=== PATIENT | male | born 1995 | race Caucasian/White ===

== ENCOUNTER 2020-05-04 03:33 | Day surgery (SDC) | payer OTHER ==
--- NOTE | 2020-05-04 03:43 | ED Physician Documentation ---
PD HPI ABD PAIN - Stated complaint Stated Complaint: ABD PX - Chief complaint Chief Complaint: Abd Pain - History obtained from History obtained from: Patient - History of Present Illness Timing - onset: Enter time (18:30), Yesterday Timing - details: Gradual onset, Constant Pain level now: 8 Quality: Pain Location: RLQ, Suprapubic Radiation: Lower back Improved by: Laying still Worsened by: Moving, Position, Palpation Associated symptoms: Nausea, Vomiting. No: Fever, Diarrhea, Constipation, Hematuria Similar symptoms before: Has not had sx before Recently seen: Not recently seen Review of Systems Constitutional: denies: Fever, Chills, Sweats Cardiac: reports: Reviewed and negative Respiratory: reports: Reviewed and negative GI: reports: Abdominal Pain, Nausea. denies: Abdominal Swelling, Vomiting, Constipation, Diarrhea : denies: Dysuria, Frequency, Hematuria Skin: denies: Rash Musculoskeletal: reports: Back pain PD PAST MEDICAL HISTORY - Past Medical History Past Medical History: No - Past Surgical History Past Surgical History: No - Present Medications Home Medications: Ambulatory Orders Medication Instructions Recorded Confirmed No Known Home Medications 05/04/20 05/04/20 - Allergies Allergies/Adverse Reactions: Allergies Allergy/AdvReac Type Severity Reaction Status Date / Time No Known Drug Allergies Allergy Verified 05/04/20 03:39 - Social History Does the pt smoke?: Yes Smoking Status: Current every day smoker Does the pt drink ETOH?: Yes ETOH Use: Beer Does the pt have substance abuse?: No - Immunizations Immunizations are current?: Yes - POLST Patient has POLST: No PD ED PE NORMAL - Vitals Vital signs reviewed: Yes - General General: Alert and oriented X 3, Well developed/nourished, Other (appears to be in moderate painful distress) - HEENT HEENT: Moist mucous membranes - Neck Neck: Supple, no meningeal sign - Cardiac Cardiac: RRR, No murmur, No gallop, No rub - Respiratory Respiratory: No respiratory distress, Clear bilaterally - Abdomen Abdomen: Soft, Non distended - Back Back: No CVA TTP - Derm Derm: Normal color, Warm and dry PD ED PE EXPANDED - Abdomen Abdomen: Tender to palpation, Rebound, RLQ. No: Guarding Results - Vitals Vitals: Vital Signs - 24 hr 05/04/20 05/04/20 05/04/20 03:35 04:24 04:52 Temperature 36.6 C 37.0 C Heart Rate 56 L 59 L 56 L Respiratory 18 18 16 Rate Blood Pressure 123/71 127/74 147/52 H O2 Saturation 100 100 100 05/04/20 05/04/20 05/04/20 05:32 06:00 06:44 Temperature 37.3 C 37.5 C 37.2 C Heart Rate 104 H 71 64 Respiratory 18 15 16 Rate Blood Pressure 143/74 H 140/59 H 140/59 H O2 Saturation 100 100 95 05/04/20 05/04/20 08:12 08:20 Temperature 36.3 C L 37.2 C Heart Rate 105 H 64 Respiratory 16 16 Rate Blood Pressure 119/56 L 140/59 H O2 Saturation 100 95 Oxygen O2 Source Room air - Labs Labs: Laboratory Tests 05/04/20 05/04/20 05/04/20 03:40 03:40 03:50 WBC 19.9 H RBC 4.78 Hgb 14.1 Hct 42.4 MCV 88.7 MCH 29.5 MCHC 33.3 RDW 12.2 Plt Count 260 MPV 11.9 H Neut # (Auto) 17.8 H Lymph # (Auto) 0.7 L Luce # (Auto) 1.1 H Eos # (Auto) 0.1 Baso # (Auto) 0.1 Absolute Nucleated RBC 0.00 Nucleated RBC % 0.0 Sodium 138 Potassium 3.7 Chloride 100 L Carbon Dioxide 26 Anion Gap 12.0 BUN 15 Creatinine 0.9 Estimated GFR (MDRD) 105 Glucose 152 H Calcium 9.7 Total Bilirubin 1.4 H AST 27 ALT 30 Alkaline Phosphatase 47 Total Protein 7.9 Albumin 5.3 Globulin 2.6 Albumin/Globulin Ratio 2.0 Lipase 20 L Urine Color YELLOW Urine Clarity CLEAR Urine pH 7.0 Ur Specific [place] >=1.030 H Urine Protein NEGATIVE Urine Glucose (UA) NEGATIVE Urine Ketones >=80 H Urine Occult Blood MODERATE H Urine Nitrite NEGATIVE Urine Bilirubin NEGATIVE Urine Urobilinogen 0.2 (NORMAL) Ur Leukocyte Esterase NEGATIVE Urine RBC 11-25 H Urine WBC 0-3 Ur Squamous Epith Cells NONE SEEN Urine Bacteria Rare Urine Mucus Moderate Strands Ur Microscopic Review INDICATED Urine Culture Comments NOT INDICATED - Rads (name of study) CT A/P with IV contrast Radiology: Prelim report reviewed, See rad report PD MEDICAL DECISION MAKING - ED course Complexity details: reviewed results, re-evaluated patient, considered differential, d/w patient ED course: H+P, CT c/w acute appendicits. D/W Dr. Ch, recommends Zosyn IV and he will admit patient to [facility] for appendectomy Departure - Departure Disposition: ED Transfer to [facility] Clinical Impression: Appendicitis Condition: Good Discharge Date/Time: 05/04/20 08:17
[2020-05-04] MEDS ORDERED: KETOROLAC 30 MG/ML VIAL IVP STA (03:54)
[2020-05-04 03:59] LABS: GLUCOSE, URINE (UA) NEGATIVE (NEGATIVE); KETONES,URINE (UA) >=80 mg/dL (NEGATIVE); LEUKOCYTE ESTERASE, URINE NEGATIVE (NEGATIVE); NITRITE,URINE NEGATIVE (NEGATIVE); OCCULT BLOOD,URINE MODERATE (NEGATIVE); PROTEIN,URINE NEGATIVE (NEGATIVE); UROBILINOGEN,URINE 0.2 (NORMAL) E.U./dL (NORMAL)
[2020-05-04 03:59] LABS: BASOPHILS # (AUTO) 0.1 10^3/uL (0.0-0.1); BASOPHILS % (AUTO) 0.4 %; EOSINOPHILS # (AUTO) 0.1 10^3/uL (0.0-0.7); EOSINOPHILS % (AUTO) 0.3 %; HGB - HEMOGLOBIN 14.1 g/dL (14.0-18.0); LYMPHOCYTES # (AUTO) 0.7 10^3/uL (1.5-3.5); LYMPHOCYTES % (AUTO) 3.7 %; MEAN CORPUSCULAR HEMOGLOBIN 29.5 pg (27.0-31.0); MEAN CORPUSCULAR HGB CONC 33.3 g/dL (32.0-36.0); MEAN CORPUSCULAR VOLUME 88.7 fL (80.0-94.0); MEAN PLATELET VOLUME 11.9 fL (7.4-11.4); MONOCYTES # (AUTO) 1.1 10^3/uL (0.0-1.0); MONOCYTES % (AUTO) 5.5 %; NEUTROPHILS # (AUTO) 17.8 10^3/uL (1.5-6.6); NEUTROPHILS % (AUTO) 89.4 %; PLT - PLATELET COUNT 260 10^3/uL (130-450); RED BLOOD COUNT 4.78 10^6/uL (4.70-6.10); RED CELL DISTRIBUTION WIDTH 12.2 % (12.0-15.0); WHITE BLOOD COUNT 19.9 x10^3/uL (4.8-10.8)
[2020-05-04 04:05] LABS: ALBUMIN 5.3 g/dL (3.2-5.5); BILIRUBIN,TOTAL 1.4 mg/dL (0.2-1.0); CALCIUM 9.7 mg/dL (8.5-10.3); CREATININE 0.9 mg/dL (0.6-1.2); TOTAL PROTEIN 7.9 g/dL (6.7-8.2)
[2020-05-04 04:06] LABS: BILIRUBIN,URINE NEGATIVE (NEGATIVE); CLARITY,URINE CLEAR (CLEAR); ICTOTEST,URINE NEGATIVE
[2020-05-04 04:07] LABS: BACTERIA,URINE Rare /HPF (None Seen); MUCUS,URINE Moderate Strands; SQUAMOUS EPITHELIAL CELL,UR NONE SEEN (<= Few)
[2020-05-04] MEDS ORDERED: IOVERSOL 320 100 ML VIAL IVP ONE ×2 (04:14→04:54)
[2020-05-04] MEDS ORDERED: SODIUM CHLORIDE 0.9% 1,000 ML IV STA (04:28)
[2020-05-04] MEDS ORDERED: ONDANSETRON 4 MG/2 ML VIAL IVP STA (04:28)
[2020-05-04] MEDS ORDERED: MORPHINE 2 MG/ML CARPUJECT IVP STA (04:28)
[2020-05-04] MEDS ORDERED: PIPERACILLIN/TAZOBACTAM 3.375 GM in SODIUM CHLORIDE 0.9% MINIBAG 100 ML IV STA (05:31)
--- NOTE | 2020-05-04 07:29 | ANESTHESIA ---
Pre-Anesthesia VS, & Labs - Diagnosis Acute Appendicitis - Procedure Lap Robert Vital Signs: Temp Pulse Resp BP Pulse Ox 37.2 C 64 16 140/59 H 95 05/04/20 06:44 05/04/20 06:44 05/04/20 06:44 05/04/20 06:44 05/04/20 06:44 Height: 5 ft 11 in Weight (kg): 95.254 kg Body Mass Index: 29.2 BMI Classification: Overweight - NPO >8 hours - Lab Results Current Lab Results: Laboratory Tests 05/04/20 03:40: Sodium 138, Potassium 3.7, Chloride 100 L, Carbon Dioxide 26, Anion Gap 12.0, BUN 15, Creatinine 0.9, Estimated GFR (MDRD) 105, Glucose 152 H, Calcium 9.7, Total Bilirubin 1.4 H, AST 27, ALT 30, Alkaline Phosphatase 47, Total Protein 7.9, Albumin 5.3, Globulin 2.6, Albumin/Globulin Ratio 2.0, Lipase 20 L 05/04/20 03:40: WBC 19.9 H, RBC 4.78, Hgb 14.1, Hct 42.4, MCV 88.7, MCH 29.5, MCHC 33.3, RDW 12.2, Plt Count 260, MPV 11.9 H, Neut # (Auto) 17.8 H, Lymph # (Auto) 0.7 L, [place] # (Auto) 1.1 H, Eos # (Auto) 0.1, Baso # (Auto) 0.1, Absolute Nucleated RBC 0.00, Nucleated RBC % 0.0 Fish Bones: 05/04/20 03:40 05/04/20 03:40 Home Medications and Allergies Home Medications: Ambulatory Orders No Known Home Medications 05/04/20 No Known Home Medications 05/04/20 Allergies/Adverse Reactions: Allergies Allergy/AdvReac Type Severity Reaction Status Date / Time No Known Drug Allergies Allergy Verified 05/04/20 03:39 Anes History & Medical History - Anesthetic History Family history of Anesthesia Complications: Denies Family history of Malignant Hyperthermia: Denies - Medical History Cardiovascular: reports: None Pulmonary: reports: None Gastrointestinal: reports: None Urinary: reports: None Neuro: reports: None Musculoskeletal: reports: None Endocrine/Autoimmune: reports: None Blood Disorders: reports: None Skin: reports: None Smoking Status: Current every day smoker Psychosocial: reports: No issues indicated History of Cancer?: No Exam General: Alert, Oriented x3, Cooperative, No acute distress Dental: WNL Mouth Openin Fingerbreadth Neck Mobility: Normal Mallampati classification: II Thyromental Distance: 4-6 cm Respiratory: Lungs clear, Normal breath sounds, No respiratory distress, No accessory muscle use Cardiovascular: Regular rate, Normal S1, Normal S2, No murmurs Mental/Cognitive Status: Alert/Oriented X3, Normal for patient Plan Anesthesia Type: General Consent for Procedure(s) Verified and Reviewed: Yes Code Status: Attempt Resuscitation ASA classification: 1-Healthy patient Is this case an emergency?: Yes
--- NOTE | 2020-05-04 08:14 | SURGERY HX AND PHYSICAL(T) ---
Surgical History & Physical - Chief Complaint/HPI Chief Complaint: Abdominal pain consistent with acute appendicitis History of Present Illness: 24-year-old male with 24-hour history of periumbilical abdominal pain that migrated to the right lower quadrant. No similar prior episodes. No personal family history of Crohn's disease or ulcerative colitis. No recent diarrheal illness. Associated nausea and multiple episodes of emesis. No significant past medical or surgical history. No significant allergies to antibiotics or medications. Patient is with no recent travel or concerning contacts. He is accompanied by his . He was seen through the ER with CT imaging consistent with retrocecal appendix, antibiotics dosed after discussion with Dr. Caceres. - PMH/PSH/Social Hx Does the pt have a hx of MRSA?: No Neurological History: None Cardiovascular: None Respiratory: None Skin: None Endocrine/Autoimmune: None Gastrointestinal: None Urinary: None Musculoskeletal: None Blood Disorders: None Smoking Status: Current every day smoker Does the pt drink ETOH?: Yes Frequency: Occasional Does the pt have substance abuse?: No - Family Hx Family Hx: Other (No significant family history of colorectal cancer, inflammatory bowel disease, Crohn's disease, ulcerative colitis) - Home Meds and Allergies Home Medications: No Known Home Medications 05/04/20 Allergies/Adverse Reactions: Allergies Allergy/AdvReac Type Severity Reaction Status Date / Time No Known Drug Allergies Allergy Verified 05/04/20 03:39 - Review of Systems Constitutional: Fatigue, Fever, Chills, Malaise Gastrointestinal: Nausea, Vomiting, Abdominal pain - Vital Signs Heart Rate: 64 Blood Pressure: 140/59 Temperature: 37.2 C Respiratory Rate: 16 O2 Saturation: 95 Weight (kg): 95.254 kg Height: 1.8 m - Physical Exam General Appearance: positive: Alert, Mild distress Eyes Bilatera: positive: Normal inspection, PERRL, EOMI ENT: positive: ENT inspection nml Neck: positive: Nml inspection Respiratory: positive: Chest non-tender, No respiratory distress, Breath sounds nml. negative: Wheezes, Rales, Rhonchi Cardiovascular: positive: Regular rate & rhythm. negative: No murmur Abdomen: positive: No distention, Tenderness, Guarding, Rebound (Abdomen softly distended, positive tenderness to palpation in the right lower quadrant with localized rebound and localized guarding. No generalized peritoneal signs. No palpable hernias or other concerning features.) Skin: positive: Color nml Extremities: positive: Non-tender, Full ROM, Nml appearance Neurologic/Psychiatric: positive: Oriented x3, CN's nml (2-12), Motor nml, Sensation nml, Mood/affect nml - Patient Review Patient Review: Problems were reviewed with the patient during this visit. Medications were reviewed with the patient during this visit. Allergies were reviewed this patient during this visit. Pertinent Tests Reviewed: All pertitent test for this patient were reviewed. - Assessment & Plan Assessment and Plan: 24-year-old male, Active , presenting with 1 day of abdominal pain. Work-up included computed tomography as well as lab evaluation. Patient notable for a leukocytosis, 19, as well as appendicitis, retrocecal, with inflammatory changes. Patient with periumbilical pain that migrated to the right lower quadrant. Discussed patient options and after informed consent was obtained agreed to proceed to the operating room urgently for laparoscopic intervention. Plan going forward is as follows: 1. Bowel rest, IV fluid resuscitation, IV antibiotics. 2. Preoperative chest x-ray, preoperative EKG, labs evaluated. 3. Planned diagnostic laparoscopy, laparoscopic appendectomy, other indicated procedures. Patient counseled of the risk associated with operative intervention including but not limited to conversion to open procedure, injury to local structures, and anesthesia risks of heart attack, stroke, . 4. Postoperative care under observation status with continued IV antibiotics.
[2020-05-04] MEDS ORDERED: ONDANSETRON 4 MG/2 ML VIAL IVP ONE (08:19)
[2020-05-04] MEDS ORDERED: PROPOFOL 200 MG/20 ML VIAL IVP ONE (08:19)
[2020-05-04] MEDS ORDERED: fentaNYL 100 MCG/2 ML VIAL IVP ONE (08:19)
[2020-05-04] MEDS ORDERED: GLYCOPYRROLATE 1 MG/5 ML VIAL IVP ONE (08:19)
[2020-05-04] MEDS ORDERED: ACETAMINOPHEN 1,000 MG/100 ML 100 ML IV ONE (08:19)
[2020-05-04] MEDS ORDERED: MIDAZOLAM 2 MG/2 ML VIAL IVP ONE (08:19)
[2020-05-04] MEDS ORDERED: NEOSTIGMINE 1 MG/1 ML 10 ML MDV IVP ONE (08:19)
[2020-05-04] MEDS ORDERED: DEXAMETHASONE 4 MG/ML VIAL IVP ONE (08:19)
[2020-05-04] MEDS ORDERED: HYDROmorphone 1 MG/ML CARPUJECT IVP ONE (08:19)
[2020-05-04] MEDS ORDERED: ROCURONIUM 50 MG/5 ML VIAL IVP ONE (08:19)
[2020-05-04] MEDS ORDERED: BUPIVACAINE 0.5% PF 30 ML VIAL ONE (08:31)
[2020-05-04] MEDS ORDERED: LIDOCAINE 1%-EPI 1:100000 20 ML MDV ONE (08:31)
--- NOTE | 2020-05-04 08:50 | CT Report ---
PROCEDURE: Abdomen/Pelvis W INDICATIONS: RLQ pain CONTRAST: IV CONTRAST: Optiray 320 ml: 100 PO CONTRAST: *NO PO CONTRAST TECHNIQUE: After the administration of weight appropriate dose of intravenous contrast, 5 mm thick sections acqu ired from the diaphragms to the symphysis. 5 mm thick coronal and sagittal reformats were acquired. For radiation dose reduction, the following was used: automated exposure control, adjustment of mA and/or kV according to patient size. COMPARISON: None. FINDINGS: Image quality: Excellent. ABDOMEN: Lung bases: Lung bases are clear. Heart size is normal. Solid organs: Liver is slightly enlarged. The spleen are normal in size and enhancement. Gallbladder is unremarkable. Biliary system is non dilated. Pancreas enhances normally. No adrenal nodules. Kidneys demonstrate normal size and enhancement, without hydronephrosis. Peritoneum and bowel: The retrocecal appendix is dilated with wall thickening and periappendiceal st randing. There are also appendicoliths. No evidence for perforation or abscess formation. Appendix me asures approximately 14 mm in diameter. Remainder of the visualized bowel loops demonstrate normal wa ll thickness and caliber. No free fluid or air. Nodes and vessels: No retroperitoneal or mesenteric adenopathy by size criteria. Aorta and inferior vena cava are normal in size. Miscellaneous: No ventral hernias. PELVIS: Genitourinary: Bladder wall thickness is normal. Miscellaneous: No inguinal hernias or adenopathy. Bones: No suspicious bony lesions. No vertebral body compression fractures. IMPRESSION: Uncomplicated acute retrocecal appendicitis with associated appendicoliths. No significant discrepancy with initial interpretation by overnight radiologist. Reviewed by: Mohan Orta MD on 05/04/2020 8:49 AM PDT Approved by: Mohan Orta MD on 05/04/2020 8:49 AM PDT Station ID: [id number]
[2020-05-04] MEDS ORDERED: LIDOCAINE 1%-EPI 1:100000 20 ML MDV SUBQ ONE ×2 (08:51)
[2020-05-04] MEDS ORDERED: BUPIVACAINE 0.5% PF 30 ML VIAL SUBQ ONE ×2 (08:52)
[2020-05-04] MEDS ORDERED: ATROPINE ABBOJECT 1 MG/10 ML SYRINGE IVP PRN (09:05)
[2020-05-04] MEDS ORDERED: NALOXONE 0.4 MG/ML VIAL IVP PRN (09:05)
[2020-05-04] MEDS ORDERED: HYDROmorphone 0.5 MG/0.5 ML SYRINGE IVP PRN (09:05)
[2020-05-04] MEDS ORDERED: MORPHINE 2 MG/ML CARPUJECT IVP PRN (09:05)
[2020-05-04] MEDS ORDERED: fentaNYL 100 MCG/2 ML VIAL IVP PRN (09:05)
[2020-05-04] MEDS ORDERED: ONDANSETRON 4 MG/2 ML VIAL IVP PRN ×2 (09:05→09:44)
[2020-05-04] MEDS ORDERED: METOCLOPRAMIDE 10 MG/2 ML VIAL IVP PRN (09:44)
[2020-05-04] MEDS ORDERED: KETOROLAC 15 MG/ML VIAL IVP PRN (09:44)
[2020-05-04] MEDS ORDERED: ACETAMINOPHEN 325 MG TABLET PO PRN (09:44)
--- NOTE | 2020-05-04 09:48 | OPERATIVE REPORT ---
Operative Report - General Procedure Date: 05/04/20 Planned Procedure: 1. Diagnostic laparoscopy 2. Laparoscopic appendectomy Pre-Op Diagnosis: SIRS, abdominal pain, acute appendicitis Procedure Performed: 1. Diagnostic laparoscopy 2. Laparoscopic appendectomy 3. Extensive lysis of adhesions 4. Drainage of abscess 5. Abdominal washout 6. Open umbilical hernia repair 7. Tap block per anesthesia Post Op Diagnosis: Same, sepsis secondary to appe, suppurative/necrotic/nonperforated appe - Procedure Note Primary Surgeon: Jing Anesthesia Provider: AURELIA Anesthesia Technique: General ET tube, Local Pathology: Appendix Estimated Blood Loss (mL): 5 Indications: See electronic medical record. Findings: 1. Dense right lower quadrant adhesions 2. Necrotic appearing suppurative nonperforated appendicitis with local purulent peritonitis 3. Intact ileocecal valve, freely mobilized after adhesiolysis 4. Right ureter identified and intact Complications: None - Other Other Information/Narrative: OPERATIVE PROCEDURE: The patient was taken to the operating room, placed supine on the operating table. The patent was already obtained tor informed consent which was documented in the patients permanent medical record The patient was induced for general endotracheal anesthesia. The patient was positioned, off loaded and padded at all pressure points. The patient was placed for a Patel catheter and tucked for the left arm. The patient was prepped and draped in the usual sterile fashion. The patient was called for a time out which was agreed to all in the room. Open Suggs technique was performed through umbilicus and umbilical trocar was placed. This was achieved with a circumlinear maria alejandra-umbilical incision. This is taken through the subcutaneous fat, the umbilical stalk was dissected off and obvious hernia defect was appreciated. This was done without any injury to the umbilical skin. That robinson defect was enlarged and accommodated Suggs trocar without any complication. Insufflation was commenced which the patient tolerated to 15 mmHg well with no complication. Additional trocars were placed suprapubic and left lower quadrant under direct laparoscopic vision. At this time the patient was placed in Trendelenburg position with right side up and we proceeded to isolate the cecum which was densely adhered to the sidewall. There were also dense adhesions of the terminal ileum to the sidewall extending to the pelvic inlet on the right. These were divided using cautery with countertraction without any complication. The appendix was noted to be significantly dilated with associated features of early necrosis, early suppuration, no kenny perforation, and localized purulent peritonitis. There is no notable abscess. We extensively aspirated this area and very carefully mobilized the appendix without any inadvertent perforation during this operative intervention. The appendix was continued to be mobilized and thereafter we achieved mobilization medially taking care to note the location of the ureter which was protected and identified throughout the entirety at this case especially given the extent of the patients inflammatory changes. Ultimately the cecum was isolated free, and the appendix was thereafter completely mobilized off the abdominal and pelvic sidewall. At this time there were dense adhesions noted of the appendix to the ascending colon and cecum and this required careful dissection as well, both blunt and also using the suction precision lathe operator and diligent electrocautery. At this time a [place] was used to dissect the cecal-appendiceal junction and thereafter using a ENDOGIA linear cutting stapler, the appendix was divided at the base to include portion at the cecum. Partial cecectomy was performed to assure complete resection of the appendix with associated necrotic tissue. The ileocecal valve was identified and protected throughout with no involvement. Please note that the terminal ileum was dissected free from its dense adhesions to the right lower quadrant and the right pelvic inlet At this time, we continued to mobilize the appendix off the ascending colon and caecum making sure there was no inadvertent injury to the ascending colon and the cecum which was again densely adhered to the appendix. The mesoappendix was divided with a additional load of the Endo TOSHIA vascular. This was hemostatic after completion with no evidence of any bleeding or extravasation at either of the staple lines at the level of the cecum or the mesentery. Prior to this complete mobilization was performed with great care using blunt as well as diligent electrocautery dissection and ultimately isolated and dissected free the appendix which was placed into an Endo Catch bag for control of any further spillage. The appendiceal staple line and mesoappendix staple line and ligature were evaluated and hemostatic. At this time, we extensively irrigated the abdomen with greater than 2 liters of sterile saline and aspirated clear. At this time all trochars, secondary, were removed under direct laparoscopic visualization with no consequent bleeding. We removed the Suggs trocar, passed the specimen off for permanent pathology. We closed the umbilical defect with several [id number]'s of 0 Vicryl, and performed umbilicoplasty simultaneous. A mixture of quarter percent Marcaine and 1% lidocaine were instilled within the wounds for a total of 10 cc. All skin and subcutaneous tissue was reapproximated with skin emiliano. Wounds were dressed with Telfa and Tegaderm. I was present for the entirety of this operative intervention patient tolerated procedure well which is no complication. All counts were sponges needles and instruments were correct at the conclusion of this operative case.
[2020-05-04] MEDS ORDERED: LACTATED RINGERS 1,000 ML IV ONE (10:00)
[2020-05-04] MEDS ORDERED: LACTATED RINGERS 1,000 ML IV SCH (10:00)
[2020-05-04] MEDS: LACTATED RINGERS 1,000 ML IV SCH ×2 (10:00→20:57)
--- NOTE | 2020-05-04 10:42 | ANESTHESIA POST OP EVALUATION ---
Anesthesia Post Eval - Post Anesthesia Eval Vitals: Last Vital Signs Temp 38.4 C H 05/04/20 10:35 Pulse 85 05/04/20 10:35 Resp 16 05/04/20 10:35 BP 91/41 L 05/04/20 10:35 Pulse Ox 96 05/04/20 10:35 CV Function Including HR & BP: positive: Stable Pain Control: positive: Satisfactory Nausea & Vomiting: positive: Negative Mental Status: positive: Baseline Respiratory Status: Airway Patent Hydration Status: Satisfactory Anesthesia Complications: positive: None
[2020-05-04] MEDS: FAMOTIDINE 20 MG/2 ML SYRINGE IVP SCH ×2 (12:05→20:02)
[2020-05-04] MEDS: PIPERACILLIN/TAZOBACTAM 3.375 GM in SODIUM CHLORIDE 0.9% MINIBAG 100 ML IV SCH ×2 (12:20→20:02)
[2020-05-05] MEDS: HYDROmorphone 0.5 MG/0.5 ML SYRINGE IVP PRN ×2 (02:35→08:23)
[2020-05-05] MEDS: PIPERACILLIN/TAZOBACTAM 3.375 GM in SODIUM CHLORIDE 0.9% MINIBAG 100 ML IV SCH (04:13)
[2020-05-05] MEDS: LACTATED RINGERS 1,000 ML IV SCH (05:17)
[2020-05-05 05:22] LABS: BASOPHILS # (AUTO) 0.1 10^3/uL (0.0-0.1); BASOPHILS % (AUTO) 0.3 %; EOSINOPHILS # (AUTO) 0.1 10^3/uL (0.0-0.7); EOSINOPHILS % (AUTO) 0.3 %; HGB - HEMOGLOBIN 11.5 g/dL (14.0-18.0); LYMPHOCYTES # (AUTO) 1.5 10^3/uL (1.5-3.5); LYMPHOCYTES % (AUTO) 9.6 %; MEAN CORPUSCULAR HEMOGLOBIN 29.5 pg (27.0-31.0); MEAN CORPUSCULAR HGB CONC 32.1 g/dL (32.0-36.0); MEAN CORPUSCULAR VOLUME 91.8 fL (80.0-94.0); MEAN PLATELET VOLUME 12.9 fL (7.4-11.4); MONOCYTES # (AUTO) 0.9 10^3/uL (0.0-1.0); MONOCYTES % (AUTO) 5.4 %; NEUTROPHILS # (AUTO) 13.5 10^3/uL (1.5-6.6); NEUTROPHILS % (AUTO) 83.7 %; PLT - PLATELET COUNT 174 10^3/uL (130-450); RED CELL DISTRIBUTION WIDTH 12.7 % (12.0-15.0); WHITE BLOOD COUNT 16.1 x10^3/uL (4.8-10.8)
[2020-05-05 05:36] LABS: ALBUMIN 3.6 g/dL (3.2-5.5); ALBUMIN/GLOBULIN RATIO 1.5 (1.0-2.2); BILIRUBIN,TOTAL 0.9 mg/dL (0.2-1.0); CALCIUM 8.3 mg/dL (8.5-10.3); CREATININE 0.9 mg/dL (0.6-1.2)
--- NOTE | 2020-05-05 08:08 | Discharge Plan ---
Discharge Plan Problem Reviewed?: Yes Disposition: Home, Self Care Condition: Good Prescriptions: Amox/Clav 875/125 [Augmentin] 1 each PO Q12H #20 tablet Docusate Sodium 100 mg PO BID #60 capsule methocarbamoL [Robaxin] 500 mg PO Q6H PRN #50 tablet PRN Reason: Spasms traMADol [Ultram] 50 mg PO Q4-6H PRN #30 tablet PRN Reason: Pain Diet: Regular (Low residue) Activity Restrictions: No heavy lift/push/pull Shower Restrictions: No (no submersive bathing) Driving Restrictions: Yes (no driving while taking narcotics) Instruction Topics: Appendicitis, Appendectomy Laparoscopic Dc, Sepsis Health Concerns: DISCHARGE INSTRUCTIONS TEMPLATE: No heavy lifting, pushing, or pulling. Stairs are allowed, no strenuou s/exertional activities. 5-10lbs weight carrying limit (i.e. gallon of milk) If provided, abdominal binder while out of bed and while ambulating. Call or proceed to clinic/ER for fevers, severe pain, nausea, vomiting, inability to pass flatus/stool, bleeding, wound redness/discharge, weakness, excessively loose stool/diarrhea, or for any other reasonably worrisome symptom or concern. Soft diet, no raw vegetables, avoid high fiber foods. Colace 100mg by mouth twice to three times daily while taking narcotic pain medication. If no bowel movement in 24-48hr, may take 17g Miralax in 8oz water twice daily until bowel movement. May shower, no submersive bathing. Follow up in clinic in 2-4 weeks for wound check and staple removal. No driving while taking narcotic pain medications. Follow up with primary care provider and/or medical subspecialist following discharge as well. Complete course of antibiotics as instructed. Plan of Treatment: 1. Complete course of antibiotics for total of 10 days outpatient oral. 2. Antibiotics will be Augmentin twice daily; patient will take probiotic as well. 3. Patient to also follow-up in surgery clinic for staple removal. 4. Patient to call or return to the hospital through ER for fevers, nausea, vomiting, abdominal pain or any other worrisome symptoms or concerns. 5. Patient not to return to any work capacity until seen in clinic. Care Goals: 1. Complete course of antibiotics for total of 10 days outpatient oral. 2. Antibiotics will be Augmentin twice daily; patient will take probiotic as well. 3. Patient to also follow-up in surgery clinic for staple removal. 4. Patient to call or return to the hospital through ER for fevers, nausea, vomiting, abdominal pain or any other worrisome symptoms or concerns. 5. Patient not to return to any work capacity until seen in clinic. Additional Instructions or Follow Up instructions: DISCHARGE INSTRUCTIONS TEMPLATE: No heavy lifting, pushing, or pulling. Stairs are allowed, no strenuous/exertional activities. 5-10lbs weight carrying limit (i.e. gallon of milk) If provided, abdominal binder while out of bed and while ambulating. Call or proceed to clinic/ER for fevers, severe pain, nausea, vomiting, inability to pass flatus/stool, bleeding, wound redness/discharge, weakness, excessively loose stool/diarrhea, or for any other reasonably worrisome symptom or concern. Soft diet, no raw vegetables, avoid high fiber foods. Colace 100mg by mouth twice to three times daily while taking narcotic pain medication. If no bowel movement in 24-48hr, may take 17g Miralax in 8oz water twice daily until bowel movement. May shower, no submersive bathing. Follow up in clinic in 2-4 weeks for wound check and staple removal. No driving while taking narcotic pain medications. Follow up with primary care provider and/or medical subspecialist following discharge as well. Complete course of antibiotics as instructed. No Smoking: If you smoke, Please STOP! Call for help. Follow-up with: Cameron Ch MD [Provider Admit Priv/Credential] - 2 Weeks (for staple removal)
--- NOTE | 2020-05-05 08:31 | DISCHARGE SUMMARY ---
"Discharge Summary Admit Date: 05/04/20 Discharge Date: 05/05/20 Discharging Provider: Jing Code Status: Attempt Resuscitation Condition at Discharge: Good Discharge Disposition: 01 Home, Self Care - DIAGNOSES Admission Diagnoses: 1. SIRS 2. Presumptive appendicitis 3. Sepsis likely secondary to suppurative appendicitis 4. Severe abdominal pain 5. Umbilical hernia Discharge Diagnoses with Status of Each Condition: 1. SIRS - RESOLVED 2. SUPPURATIVE, NECROTIC appendicitis - RESOLVED 3. Sepsis secondary to suppurative appendicitis - RESOLVED 4. Severe abdominal pain WITH PURULENT PERITONITIS/LOCALIZED - RESOLVED/WASHED OUT 5. Umbilical hernia - REPAIRED - HPI History of Present Illness: Chief Complaint: Abdominal pain consistent with acute appendicitis History of Present Illness: 24-year-old male with 24-hour history of periumbilical abdominal pain that migrated to the right lower quadrant. No similar prior episodes. No personal family history of Crohn's disease or ulcerative colitis. No recent diarrheal illness. Associated nausea and multiple episodes of emesis. No significant past medical or surgical history. No significant allergies to antibiotics or medications. Patient is with no recent travel or concerning contacts. He is accompanied by his . He was seen through the ER with CT imaging consistent with retrocecal appendix, antibiotics dosed after discussion with Dr. Caceres. 24-year-old male, Active , presenting with 1 day of abdominal pain. Work-up included computed tomography as well as lab evaluation. Patient notable for a leukocytosis, 19, as well as appendicitis, retrocecal, with inflammatory changes. Patient with periumbilical pain that migrated to the right lower quadrant. Discussed patient options and after informed consent was obtained agreed to proceed to the operating room urgently for laparoscopic intervention. Plan going forward is as follows: 1. Bowel rest, IV fluid resuscitation, IV antibiotics. 2. Preoperative chest x-ray, preoperative EKG, labs evaluated. 3. Planned diagnostic laparoscopy, laparoscopic appendectomy, other indicated procedures. Patient counseled of the risk associated with operative intervention including but not limited to conversion to open procedure, injury to local structures, and anesthesia risks of heart attack, stroke, . 4. Postoperative care under observation status with continued IV antibiotics. - CONSULTS | PROCEDURES Procedures: Procedure Performed: 1. Diagnostic laparoscopy 2. Laparoscopic appendectomy 3. Extensive lysis of adhesions 4. Drainage of abscess 5. Abdominal washout 6. Open umbilical hernia repair 7. Tap block per anesthesia Post Op Diagnosis: Same, sepsis secondary to appe, suppurative/necrotic/nonpe rforated appe Findings: 1. Dense right lower quadrant adhesions 2. Necrotic appearing suppurative nonperforated appendicitis with local purulent peritonitis 3. Intact ileocecal valve, freely mobilized after adhesiolysis 4. Right ureter identified and intact - HOSPITAL COURSE Hospital Course: 24-year-old male, Active , presenting with 1 day of abdominal pain. Work-up included computed tomography as well as lab evaluation. Patient notable for a leukocytosis, 19, as well as appendicitis, retrocecal, with inflammatory changes. Patient with periumbilical pain that migrated to the right lower quadrant. Discussed patient options and after informed consent was obtained agreed to proceed to the operating room urgently for laparoscopic intervention. Plan going forward is as follows: 1. Bowel rest, IV fluid resuscitation, IV antibiotics. 2. Preoperative chest x-ray, preoperative EKG, labs evaluated. 3. Planned diagnostic laparoscopy, laparoscopic appendectomy, other indicated procedures. Patient counseled of the risk associated with operative intervention including but not limited to conversion to open procedure, injury to local structures, and anesthesia risks of heart attack, stroke, . 4. Postoperative care under observation status with continued IV antibiotics. Patient fluid resuscitated, started on broad spectrum antibiotics for suspected appendicitis, and also admitted with diagnosis SIRS with sepsis likely from suppurative appendicitis. Bowel rested in anticipation of operative i ntervention. Procedure Performed: 1. Diagnostic laparoscopy 2. Laparoscopic appendectomy 3. Extensive lysis of adhesions 4. Drainage of abscess 5. Abdominal washout 6. Open umbilical hernia repair 7. Tap block per anesthesia Post Op Diagnosis: Same, sepsis secondary to appe, suppura tive/necrotic/nonperforated appe Findings: 1. Dense right lower quadrant adhesions 2. Necrotic appearing suppurative nonperforated appendicitis with local purulent peritonitis 3. Intact ileocecal valve, freely mobilized after adhesiolysis 4. Right ureter identified and intact Patient admitted with acute appendicitis. Patient underwent operative intervention as listed in the electronic medical record. Tolerated procedure well for which there was no complication. Patient presenting with leukocytosis, significant, febrile episodes persistent even intraoperatively following commencement of antibiotics, hypotension to below 90, and associated tachypnea. Thus diagnosis with sepsis and given associated suppurative appendicitis this is sepsis associated with a perforated, though contained, appendicitis. Postoperatively the patient was managed for postoperative analgesia and resum ption of bowel function. Patient had successfully passed trial of void. Tolerated oral intake without any complication. Denied nausea denied vomiting. Was advanced for diet without any complication. Was counseled that given evidence of suppuration in the setting of the patient's acute appendicitis would recommend continued antibiotics for 2 weeks; patient was maintained on antibiotics during the hospital stay. Discharge instructions given. Analgesia with tramadol provided at time of disch arge. Patient plan for follow-up and will be notified of pathology once returned. - ALLERGIES Allergies/Adverse Reactions: Allergies Allergy/AdvReac Type Severity Reaction Status Date / Time No Known Drug Allergies Allergy Verified 05/04/20 03:39 - MEDICATIONS Home Medications: Ambulatory Orders Medication Instructions Recorded Confirmed Acetaminophen [Tylenol] 650 mg PO Q6H PRN tablet 05/05/20 Amox/Clav 875/125 [Augmentin] 1 each PO Q12H #20 tablet 05/05/20 Docusate Sodium 100 mg PO BID #60 capsule 05/05/20 methocarbamoL [Robaxin] 500 mg PO Q6H PRN #50 tablet 05/05/20 oxyCODONE [Roxicodone] 5 mg PO ONCE PRN #24 tablet 05/05/20 traMADol [Ultram] 50 mg PO Q4-6H PRN #30 tablet 05/05/20 - PHYSICAL EXAM AT DISCHARGE General Appearance: positive: No acute distress, Alert Eyes Bilateral: positive: Normal inspection, PERRL, EOMI ENT: positive: ENT inspection nml Neck: positive: Nml inspection Respiratory: positive: Chest non-tender, No respiratory distress, Breath sounds nml. negative: Wheezes, Rales, Rhonchi Cardiovascular: positive: Regular rate & rhythm, No murmur, No gallop Abdomen: positive: Other (Appropriately tender to palpation, wounds clean/dry/intact). negative: Guarding, Rebound Rectal: positive: Non-tender, Other Skin: positive: Color nml Extremities: positive: Non-tender, Full ROM, Nml appearance Neurologic/Psychiatric: positive: Oriented x3, CN's nml (2-12), Motor nml, Sensation nml, Mood/affect nml - LABS Result Diagrams: 05/05/20 08:25 05/05/20 04:30 - DIAGNOSTIC IMAGING Diagnostic Imaging Results: Final report reviewed Diagnostic Imaging Results Comments: CT abdomen pelvis, impression: 1. Uncomplicated acute retrocecal appendicitis with associated appendicolith. 2. No significant discrepancy with initial interpretation by overnight radiologist. - SEPSIS Current Stage of Sepsis: Resolved Possible source of Sepsis: Other Confirmed Source and Organism (if known) of Sepsis: Suppurative Appendicitis - FOLLOW UP Follow Up: DISCHARGE INSTRUCTIONS TEMPLATE: No heavy lifting, pushing, or pulling. Stairs are allowed, no strenuous/exertional activities. 5-10lbs weight carrying limit (i.e. gallon of milk) If provided, abdominal binder while out of bed and while ambulating. Call or proceed to clinic/ER for fevers, severe pain, nausea, vomiting, inability to pass flatus/stool, bleeding, wound redness/discharge, weakness, excessively loose stool/diarrhea, or for any other reasonably worrisome symptom or concern. Soft diet, no raw vegetables, avoid high fiber foods. Colace 100mg by mouth twice to three times daily while taking narcotic pain medication. If no bowel movement in 24-48hr, may take 17g Miralax in 8oz water twice daily until bowel movement. May shower, no submersive bathing. Follow up in clinic in 2-4 weeks for wound check and staple removal. No driving while taking narcotic pain medications. Follow up with primary care provider and/or medical subspecialist following discharge as well. Complete course of antibiotics as instructed. Plan of Treatment: 1. Complete course of antibiotics for total of 10 days outpatient oral. 2. Antibiotics will be Augmentin twice daily; patient will take probiotic as well. 3. Patient to also follow-up in surgery clinic for staple removal. 4. Patient to call or return to the hospital through ER for fevers, nausea, vomiting, abdominal pain or any other worrisome symptoms or concerns. 5. Patient not to return to any work capacity until seen in clinic. - TIME SPENT Time Spent in Discharge (Minutes): 45"
[2020-05-05 08:36] LABS: BASOPHILS # (AUTO) 0.1 10^3/uL (0.0-0.1); BASOPHILS % (AUTO) 0.3 %; EOSINOPHILS # (AUTO) 0.1 10^3/uL (0.0-0.7); EOSINOPHILS % (AUTO) 0.5 %; HGB - HEMOGLOBIN 11.9 g/dL (14.0-18.0); LYMPHOCYTES # (AUTO) 1.7 10^3/uL (1.5-3.5); LYMPHOCYTES % (AUTO) 11.5 %; MEAN CORPUSCULAR HEMOGLOBIN 29.9 pg (27.0-31.0); MEAN CORPUSCULAR HGB CONC 32.5 g/dL (32.0-36.0); MEAN PLATELET VOLUME 12.3 fL (7.4-11.4); MONOCYTES % (AUTO) 6.8 %; NEUTROPHILS # (AUTO) 11.9 10^3/uL (1.5-6.6); NEUTROPHILS % (AUTO) 80.1 %; PLT - PLATELET COUNT 177 10^3/uL (130-450); RED BLOOD COUNT 3.98 10^6/uL (4.70-6.10); RED CELL DISTRIBUTION WIDTH 12.7 % (12.0-15.0); WHITE BLOOD COUNT 14.9 x10^3/uL (4.8-10.8)
[2020-05-05 09:19] VITALS: BP 108/56
== END 2020-05-05 11:10 | disposition home or self-care (01) ==
LOC: ED 03:33 → SDS 08:00 → MS3 09:44 → ICU 11:05 → SDS 05-05 11:10
PROVIDERS: ATTEND Surgery
PROC: 0DTJ4ZZ Resection of Appendix, Percutaneous Endoscopic Approach (ICD-10-PCS; principal; 2020-05-04 07:30)
DX: A41.9 Sepsis, unspecified organism (principal); K35.30 Acute appendicitis with localized peritonitis, without perforation or gangrene; K42.9 Umbilical hernia without obstruction or gangrene; F17.200 Nicotine dependence, unspecified, uncomplicated
CPT/HCPCS: 36415; 44970; 74177; 80053; 81001; 83690; 85025; 88304; 96361; 96365; 96375; 99284; 99285; J0131; J1170; J7120; Q9967; 81003; 87086

== ENCOUNTER 2021-06-25 01:18 | Outpatient (CLI) | payer OTHER | END 2021-06-25 01:19 | disposition critical access hospital (66) | LOC: EMS 01:18 | DX: Z04.1 Encounter for examination and observation following transport accident (principal); M54.9 Dorsalgia, unspecified | CPT/HCPCS: A0425; A0429 ==

== ENCOUNTER 2021-06-25 01:36 | Observation (INO) | payer OTHER ==
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
[2021-06-25 01:58] LABS: BASOPHILS % (AUTO) 0.3 %; EOSINOPHILS # (AUTO) 0.1 10^3/uL (0.0-0.7); EOSINOPHILS % (AUTO) 0.6 %; HCT - HEMATOCRIT 43.8 % (42.0-52.0); HGB - HEMOGLOBIN 14.9 g/dL (14.0-18.0); LYMPHOCYTES # (AUTO) 2.8 10^3/uL (1.5-3.5); LYMPHOCYTES % (AUTO) 23.9 %; MEAN CORPUSCULAR HEMOGLOBIN 29.7 pg (27.0-31.0); MEAN CORPUSCULAR VOLUME 87.3 fL (80.0-94.0); MEAN PLATELET VOLUME 11.9 fL (7.4-11.4); MONOCYTES # (AUTO) 0.8 10^3/uL (0.0-1.0); MONOCYTES % (AUTO) 6.8 %; NEUTROPHILS % (AUTO) 67.9 %; PLT - PLATELET COUNT 251 10^3/uL (130-450); RED BLOOD COUNT 5.02 10^6/uL (4.70-6.10); RED CELL DISTRIBUTION WIDTH 12.3 % (12.0-15.0); WHITE BLOOD COUNT 11.8 x10^3/uL (4.8-10.8)
[2021-06-25 02:12] LABS: ALBUMIN 5.3 g/dL (3.2-5.5); ALBUMIN/GLOBULIN RATIO 2.1 (1.0-2.2); BILIRUBIN,TOTAL 0.9 mg/dL (0.2-1.0); CREATININE 0.9 mg/dL (0.6-1.2); POTASSIUM 3.4 mmol/L (3.5-5.0); TOTAL PROTEIN 7.8 g/dL (6.7-8.2)
[2021-06-25] MEDS ORDERED: IOVERSOL 320 100 ML VIAL IVP ONE ×2 (02:25→05:34)
[2021-06-25 02:26] LABS: MUDS CUTOFF CONCENTRATIONS CUTOFF CONC BELOW:
[2021-06-25 02:27] LABS: BILIRUBIN,URINE NEGATIVE (NEGATIVE); CLARITY,URINE CLEAR (CLEAR); GLUCOSE, URINE (UA) NEGATIVE (NEGATIVE); KETONES,URINE (UA) TRACE mg/dL (NEGATIVE); LEUKOCYTE ESTERASE, URINE NEGATIVE (NEGATIVE); NITRITE,URINE NEGATIVE (NEGATIVE); OCCULT BLOOD,URINE MODERATE (NEGATIVE); PH,URINE 6.5 PH (5.0-7.5); PROTEIN,URINE TRACE mg/dL (NEGATIVE); UROBILINOGEN,URINE 0.2 (NORMAL) E.U./dL (NORMAL)
[2021-06-25 02:35] LABS: BACTERIA,URINE None Seen /HPF (None Seen); SQUAMOUS EPITHELIAL CELL,UR NONE SEEN (<= Few); WBC,URINE 0-3 /HPF (0-3)
[2021-06-25 02:37] LABS: AMPHETAMINE SCREEN,URINE NEGATIVE (NEGATIVE); BARBITURATE SCREEN,UR NEGATIVE (NEGATIVE); BENZODIAZEPINES SCREEN, URINE NEGATIVE (NEGATIVE); COCAINE SCREEN URINE NEGATIVE (NEGATIVE); METHADONE SCREEN, URINE NEGATIVE (NEGATIVE); METHAMPHETAMINES SCREEN, URINE NEGATIVE (NEGATIVE); OPIATE SCREEN, URINE NEGATIVE (NEGATIVE); OXYCODONE SCREEN, URINE NEGATIVE (NEGATIVE); PROPOXYPHENE SCREEN, URINE NEGATIVE (NEGATIVE); THC CANNABINOID SCREEN, URINE NEGATIVE (NEGATIVE); TRICYCLIC ANTIDEPRESSANT,URINE NEGATIVE (NEGATIVE)
[2021-06-25 02:55] LABS: INR 1.1 (0.8-1.2); PT - PROTHROMBIN TIME 12.1 secs (9.9-12.6)
[2021-06-25 03:02] LABS: PARTIAL THROMBOPLASTIN TIME 26.9 secs (24.9-33.3)
[2021-06-25] MEDS ORDERED: oxyCODONE 5 MG TABLET PO PRN (03:06)
[2021-06-25] MEDS ORDERED: ONDANSETRON ODT 4 MG TABLET TL PRN (03:06)
[2021-06-25] MEDS ORDERED: ONDANSETRON 4 MG/2 ML VIAL IVP PRN (03:06)
[2021-06-25] MEDS ORDERED: SODIUM CHLORIDE FLUSH 0.9% 10 ML SYRINGE IVP PRN (03:06)
[2021-06-25] MEDS ORDERED: HYDROmorphone 0.5 MG/0.5 ML SYRINGE IVP PRN (03:06)
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
[2021-06-25 04:04] LABS: B. PARAPERTUSSIS- RESP PCR PAN NOT DETECTED; B. PERTUSSIS- RESP PCR PANEL NOT DETECTED; C. PNEUMONIAE- RESP PCR PANEL NOT DETECTED; CORONAVIRUS 229E-RESP PCR NOT DETECTED; CORONAVIRUS HKU1-RESP PCR NOT DETECTED; CORONAVIRUS NL63-RESP PCR NOT DETECTED; CORONAVIRUS OC43-RESP PCR NOT DETECTED; HUMAN METAPNEUMOVIRUS NOT DETECTED; INFLUENZA A- RESP PCR PANEL NOT DETECTED; INFLUENZA B - RESP PCR PANEL NOT DETECTED; M. PNEUMONIAE- RESP PCR PANEL NOT DETECTED; PARAINFLUENZA VIRUS 1 NOT DETECTED; PARAINFLUENZA VIRUS 2 NOT DETECTED; PARAINFLUENZA VIRUS 3 NOT DETECTED; PARAINFLUENZA VIRUS 4 NOT DETECTED; RHINOVIRUS/ENTEROVIRUS NOT DETECTED; RSV- RESP PCR PANEL NOT DETECTED; SARS-CoV-2 -RESP PCR PANEL NOT DETECTED
[2021-06-25] MEDS ORDERED: MORPHINE 2 MG/ML CARPUJECT IVP STA (04:50)
[2021-06-25] MEDS: LACTATED RINGERS 1,000 ML IV SCH ×2 (05:23→12:39)
[2021-06-25 07:15] VITALS: BP 115/47
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
[2021-06-25] MEDS: ACETAMINOPHEN 325 MG TABLET PO PRN ×2 (08:24→12:38)
[2021-06-25] MEDS ORDERED: SODIUM CHLORIDE FLUSH 0.9% 10 ML SYRINGE IVP SCH (09:00)
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
== END 2021-06-25 13:30 | disposition home or self-care (01) ==
LOC: ED 01:36 → MS2 03:06
PROVIDERS: ADMIT Surgery; ATTEND Surgery
DX: S22.32XA Fracture of one rib, left side, initial encounter for closed fracture (principal); S32.029A Unspecified fracture of second lumbar vertebra, initial encounter for closed fracture; S32.039A Unspecified fracture of third lumbar vertebra, initial encounter for closed fracture; V49.88XA Car occupant (driver) (passenger) injured in other specified transport accidents, initial encounter; Y92.410 Unspecified street and highway as the place of occurrence of the external cause; Z20.822 Contact with and (suspected) exposure to COVID-19
CPT/HCPCS: 0202U; 36415; 51702; 70450; 71260; 72125; 74177; 80053; 80306; 80320; 81001; 83690; 85025; 85610; 85730; 86850; 86900; 86901; 96374; 99283; 99285; A9270; J7120; Q9967; 81003; 87086